=== PATIENT | male | born 1990 | race American Indian/Alaskan Native ===

== ENCOUNTER 2016-09-13 21:18 | Emergency (ER) | payer SELFPAY ==
[2016-09-13] MEDS: ZOFRAN IV ONE ×2 (21:29→22:15)
[2016-09-13 21:30] LABS: Basophils % (Auto) 0.8 % (0.0-1.8); Eosinophils % (Auto) 0.2 % (0.0-4.3); Hematocrit 48.8 % (35.5-45.6); Hemoglobin 15.6 gm/dl (11.8-15.2); Mean Corpuscular HGB Conc 32 % (32-34); Mean Corpuscular Hemoglobin 28 pg (28-32); Mean Corpuscular Volume 88 fl (84-94); Platelet Count 226 K/mm3 (140-440); Red Blood Count 5.55 M/mm3 (3.65-5.03); Red Cell Distribution Width 13.7 % (13.2-15.2); White Blood Count 8.3 K/mm3 (4.5-11.0)
[2016-09-13] MEDS: MORPHINE IV ONE ×3 (21:31→23:35)
[2016-09-13] MEDS: NACL 0.9% 1000 ML 1,000 ML IV ONE ×2 (21:31→23:08)
[2016-09-13 21:42] LABS: Alanine Aminotransferase 11 units/L (7-56); Albumin 4.8 g/dL (3.9-5); Albumin/Globulin Ratio 1.5 %; Alkaline Phosphatase 73 units/L (35-129); Anion Gap 16 mmol/L; BUN/Creatinine Ratio 5.55; Bilirubin,Total 0.5 mg/dL (0.1-1.2); Blood Urea Nitrogen 5 mg/dL (9-20); Calcium 9.4 mg/dL (8.4-10.2); Carbon Dioxide 29 mmol/L (22-30); Chloride 99.3 mmol/L (98-107); Glucose 83 mg/dL (75-100); Potassium 3.7 mmol/L (3.6-5.0); Sodium 141 mmol/L (137-145)
[2016-09-13 22:04] LABS: INR 1.1 (0.87-1.13)
[2016-09-13] MEDS: BOOSTRIX IM ONE (22:18)
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
[2016-09-13 23:46] LABS: Bilirubin,Urine NEG (Negative); Blood,Urine NEG (Negative); Ketones,Urine NEG (Negative); Leukocyte Esterase,Urine NEG (Negative); Nitrite,Urine NEG (Negative); Protein,Urine <15 mg/dL mg/dL (Negative); Urobilinogen,Urine < 2.0 mg/dL (<2.0)
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
[2016-09-14 02:09] VITALS: BP 108/66
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
== END 2016-09-14 02:09 | disposition home or self-care (01) ==
LOC: ED 21:18
DX: S31.134A Puncture wound of abdominal wall without foreign body, left lower quadrant without penetration into peritoneal cavity, initial encounter (principal); S81.832A Puncture wound without foreign body, left lower leg, initial encounter; F17.200 Nicotine dependence, unspecified, uncomplicated; W34.00XA Accidental discharge from unspecified firearms or gun, initial encounter; Y93.9 Activity, unspecified; Y92.9 Unspecified place or not applicable; Y99.9 Unspecified external cause status
CPT/HCPCS: 36415; 71010; 72170; 75635; 80053; 81001; 82140; 85025; 85610; 85730; 90471; 90715; 93005; 93010; 96361; 96374; 96375; 96376; 99285; J2270; J2405; J7030; Q9967